=== PATIENT | male | born 1955 ===

== ENCOUNTER 2018-08-27 06:08 | Outpatient (CLI) | payer OTHER | END 2018-08-27 06:15 | disposition home or self-care (01) | LOC: LAB 06:08 | DX: E78.49 Other hyperlipidemia (principal); R42 Dizziness and giddiness; N39.0 Urinary tract infection, site not specified; Z00.00 Encounter for general adult medical examination without abnormal findings; R51 Headache ==

== ENCOUNTER 2018-12-18 06:13 | Outpatient (CLI) | payer OTHER | END 2018-12-18 06:25 | disposition home or self-care (01) | LOC: LAB 06:13 | DX: E11.65 Type 2 diabetes mellitus with hyperglycemia (principal); E78.00 Pure hypercholesterolemia, unspecified ==

== ENCOUNTER → 2019-01-18 06:18 | Outpatient (CLI) | payer OTHER | END | disposition home or self-care (01) | LOC: LAB 06:18 | DX: Z11.3 Encounter for screening for infections with a predominantly sexual mode of transmission (principal) ==

== ENCOUNTER 2019-10-25 10:00 | Outpatient (CLI) | payer OTHER | END 2019-10-25 15:00 | disposition home or self-care (01) | LOC: PPH VACUNA 10:00 | DX: Z23 Encounter for immunization (principal) ==

== ENCOUNTER → 2020-02-26 06:34 | Outpatient (CLI) | payer OTHER ==
[~2020-02-26 06:34] MED LIST: ATACAND16 MG PO; FORTAMET500 MG PO; KETO10TA2 PO; ZANAFLEX4 M1 PO
== END | disposition home or self-care (01) ==
LOC: LAB 06:34
PROVIDERS: ATTEND General Practice
DX: N40.0 Benign prostatic hyperplasia without lower urinary tract symptoms (principal); I10 Essential (primary) hypertension; Z00.00 Encounter for general adult medical examination without abnormal findings; E78.49 Other hyperlipidemia; E55.9 Vitamin D deficiency, unspecified; N39.0 Urinary tract infection, site not specified; N42.0 Calculus of prostate

== ENCOUNTER 2020-02-26 07:18 | Emergency (ER) | payer OTHER ==
[~2020-02-26] VITALS: Ht 160 cm; Wt 81.6 kg
[2020-02-26] MEDS ORDERED: FORTAMET500 MG PO (07:36)
[2020-02-26] MEDS ORDERED: ATACAND16 MG PO (07:44)
[2020-02-26] MEDS ORDERED: ZANAFLEX4 M1 PO (08:31)
[2020-02-26] MEDS ORDERED: KETO10TA2 PO (08:31)
== END 2020-02-26 08:48 | disposition home or self-care (01) ==
LOC: ER 07:18
DX: M54.5 Low back pain (principal)